=== PATIENT | female | born 1945 | race Caucasian/White ===

== ENCOUNTER 2025-07-14 13:11 | Outpatient (AMB) | payer MEDICARE, MEDICAID, SELFPAY ==
--- NOTE | 2025-07-14 13:22 | A.OFFVIS_ITS ---
Vital Signs 07/14/25 13:24 Height 5 ft 3 in Weight 190 lb 11.198 oz BMI 33.8 BP 112/72 Blood Pressure Location Rt brachial Position Sitting Pulse 58 Pulse Source Pulse Oximeter Pulse Oximetry (%) 97 Oxygen Delivery Method Room Air Intake Visit Reasons: Hypoglycemia Intake Note: NEW Patient presents here today to establish treatment for Hypoglycemia. Surgical Product Sales Consultant Required: Yes Surgical Product Sales Consultant Language: [place]raini Surgical Product Sales Consultant Services: Surgical Product Sales Consultant Present Surgical Product Sales Consultant Name: Jovani Galeana [id number] Information Interpreted: non-clinical & clinical Accompanied by: Son Allergies No Known Allergies Allergy (Verified 07/14/25 13:25) HPI Comments Details: PMH: HTN, Obesity, MDD in remission, GERD, seen in the office for initial evaluation and managememnt of hypoglycemia. HPI Recurrent episodes of hypoglycemia. Happening for the last 5-6 years. Varies, sometimes she has not symptoms for 1 months, sometimes she has 2 episodes of hypoglycemia. In between meals or the evening. She reports that when that happens she sometimes not feel like eating, but sometimes she does feel like eating. She reports that her BG when she checks are usually 40-50s. She has not have any specific testing for hypoglycemia Feels unwell, shaking, feeling like she is going to faint. She has never lost consciousness. She not always eats when this happens, but the times she eats the symptoms do improve. She has no history of admission for hypoglycemia, nor she has been told to have hypoglycemia during a hospital admission. There are not known specific triggers for her hypoglycemia episodes Her BG fasting are usually around 100. She did not bring a glucose log Weight usually stable, has gained a few lbs in the last few months No personal or family history T1 or T2DM No medications in records that could be associated with hypoglycemia No history of GLP-1 medications for weight loss No recent changes in medication Dietary History: diet would be really comprising of diverse food, like for breakfast, she may eat some eggs or some porridge or cottage cheese. For lunch, would have a soup, then the main dish, like diverse things. No relation between high carb meal and hypoglycemia episode No ETOH No history of Diabetes mellitus, Chronic kidney disease, Liver disease, Adrenal disease, Bariatric or GI surgery, Malignancy, Autoimmune disease. History of abdominal hernia repair with clips. No bowel suregry involved per patient report. Physical exam: General: Well appearing. NAD. Not Cushingoid or Acromegalic Neck/Thyroid: Thyroid not palpable, no nodules. Eyes: No conjunctival injection, not lid lag or proptosis CV: RRR, no murmur. No edema. Resp:Lungs clear to auscultation bilaterally Abdomen: Soft, nontender. nondistended Extremities/Neuro: No weakness or tremor of outstretched hands [facility] Medical History (Updated 07/14/25 @ 14:42 by Jason Mcgee MD) Obesity (BMI 30.0-34.9) Major depression in complete remission Chronic dermatitis Age-related cognitive decline Acute sinusitis Impaired fasting glucose Hip pain Dyslipidemia Idiopathic osteoarthritis Gastroesophageal reflux disease Hypercholesteremia Benign hypertensive heart disease Surgical History History of abdominal hernia Hx of total knee replacement Family History Father No problems noted. Mother No problems noted. Social History Alcohol intake: current Alcohol intake frequency: does not drink Patient Tobacco Use Status: Never used Tobacco Physical Exam Vital Signs: Last Vital Signs Pulse 58 07/14/25 13:24 BP 112/72 07/14/25 13:24 Pulse Ox 97 07/14/25 13:24 Oxygen Delivery Method Room Air 07/14/25 13:24 BMI result Body Mass Index 33.8 Assessment & Plan Assessment & Plan (1) Hypoglycemia: Code(s): E16.2 - Hypoglycemia, unspecified Category: Medical Plan: Recurrent hypoglycemia, sporadic episodes over 5-6 years with documented glucose values 49-52 mg/dL. No diabetes, no hypoglycemic medications, no clear trigger identified. Whipple's triad appears met based on home glucose monitoring. She does not meet the Whipples criteria, strictly talking. Concerned for possible hyperinsulinism. Will obtain laboratory evaluation. Plan 1. Laboratory Evaluation Ordered fasting blood work to evaluate for excess insulin production. Patient to complete labs before follow-up visit. 2. Home Glucose Monitoring Patient to check blood glucose 3 times daily for 2 weeks and maintain written log. Bring log to next appointment. Prescribed test strips (Freestyle Lite). Patient has adequate lancet supply. 3. Dietary Modifications Advised to avoid foods with simple carbohydrates including cookies, bread, pasta, and candies. 4. Nutrition Referral Patient agreeable to seeing client support professional for more specific dietary guidance. 5. Follow-Up Return visit scheduled for August. Patient to bring glucose log and will review laboratory results at that time. Patient Instructions (Brief) Check glucose 3 times daily for next 2 weeks and keep written record Avoid simple carbs (cookies, bread, pasta, candy) Complete fasting blood work before next visit Treat low blood sugars with juice or honey as you have been doing Return in August with glucose log Plan 65 minutes spent reviewing previous records, labs, imaging, education and documenting in the chart Orders: Orders 2 C Peptide Today E16.2 - Hypoglycemia, unspecified Proinsulin Today E16.2 - Hypoglycemia, unspecified Hemoglobin A1c Today E16.2 - Hypoglycemia, unspecified Hypoglycemic Panel Today E16.2 - Hypoglycemia, unspecified Other Ref Test - Misc 1 Day E16.2 - Hypoglycemia, unspecified Glucose Fasting Today E16.2 - Hypoglycemia, unspecified Insulin Today E16.2 - Hypoglycemia, unspecified Cortisol Random Today E16.2 - Hypoglycemia, unspecified Other Ref Test - Misc Today E16.2 - Hypoglycemia, unspecified Referrals Nutrition/Dietitian Referral E16.2 - Hypoglycemia, unspecified Medications: New blood sugar diagnostic (FreeStyle Lite Strips) As directed 100 ea 2RF Coding Level of Care Code New Pt Level 5 (84481) Add On Problem Visit Only Diagnoses Hypoglycemia E16.2
[2025-07-14 13:24] VITALS: BP 112/72; PULSE 58; O2SAT 97; BMI 33.8
--- OUTSIDE RECORDS SUMMARY | 2025-07-14 17:13 | XMS_ITS | Clinical Summary ---
Author Organization [address] [facility] Address [address] [place] [address] Phone Care Team Providers Care Nightman Name Role Phone Yulisa Oneill Primary Care Provider Allergies No known active allergies Medications amLODIPine (NORVASC) 5 mg tablet Take 1 tablet (5 mg total) by mouth. 04/28/2019 Active Eliquis 5 mg tablet Take 1 tablet (5 mg total) by mouth 2 (two) times a day. Active metoprolol tartrate (LOPRESSOR) 25 mg tablet Take 1 tablet (25 mg total) by mouth 2 (two) times a day. 09/23/2024 Active rosuvastatin (CRESTOR) 5 mg tablet Take 1 tablet (5 mg total) by mouth. 10/15/2024 Active Medical History Medical History Date Comments HTN (hypertension) DX:HTN (hyper tension) Social History Tobacco Use Types Packs/Day Years Used Date Smoking Tobacco: Never Assessed Comments Unknown Sex and Gender Information Value Date Recorded Sex Assigned at Not on file Legal Sex Female 11:07 AM EDT Gender Identity Not on file Sexual Orientation Not on file Last Filed Vital Signs Vital Sign Reading Time Taken Comments Blood Pressure 128/90 11/04/2024 8:24 AM EDT Pulse 74 11/04/2024 8:24 AM EDT Temperature - - Respiratory Rate - - Oxygen Saturation - - Inhaled Oxygen Concentration - - Weight 82.6 kg (182 lb) 11/04/2024 8:24 AM EDT Height 160 cm (5' 3 ) 03/12/2024 4:10 PM EDT Body Mass Index 32.24 03/12/2024 4:10 PM EDT Plan of Treatment Health Maintenance Due Date Last Done Comments DTaP,Tdap,and Td Vaccines (1 - Tdap) 1965 Pneumococcal Vaccine: 50+ Ye ars (1 of 1 - PCV) 1996 Zoster Vaccines (1 of 2) 1996 RSV Immunization Adult Patie nts (1 - 1-dose 75+ series) 2021 Cholesterol Screening (Lipid Panel) 02/22/2024 Falls Risk Assessment 02/22/2024 Hepatitis C Screening 02/22/2024 Medicare Annual Wellness Visit 02/22/2024 Osteoporosis Screening (Bone Density Screening) 02/22/2024 Social Influencers of Health Screening 02/22/2024 Hypertension/CHF/CAD Annual BMP Blood Test 05/09/2024 Depression Screening 07/30/2024 COVID-19 Vaccine (2 - 2024-2 6 season) 2025 08/24/2021 Influenza Vaccine (#1) 2025 HIB Vaccines Aged Out No longer eligi ble based on patient's age to complete this topic HPV Vaccines Aged Out No longer eligi ble based on patient's age to complete this topic Hepatitis A Vaccines Aged Out No long er eligible based on patient's age to complete this topic Hepatitis B Vaccines Aged Out No long er eligible based on patient's age to complete this topic IPV Vaccines Aged Out No longer eligi ble based on patient's age to complete this topic MMR Vaccines Aged Out No longer eligi ble based on patient's age to complete this topic Meningococcal ACWY Vaccine Aged Out N o longer eligible based on patient's age to complete this topic Meningococcal B Vaccine Aged Out No l onger eligible based on patient's age to complete this topic RSV Immunization Patients Un prasanna 20 months Aged Out No longer eligible b ased on patient's age to complete this topic Varicella Vaccines Aged Out No longer eligible based on patient's age to complete this topic Insurance MEDICAID - [place] MEDICARE Care Teams Nightman Relationship Specialty Start Date End Date Yulisa Oneill PA [address] [place] [address] [address] [place] [address] PCP - General 09/14/23
== END 2025-07-14 14:17 | disposition home or self-care (01) ==
LOC: HO.ENCR 13:11
PROVIDERS: PCP Physician Assistant Medical; Visit Provider Student in an Organized Health Care Education/Training Program
DX: E16.2 Hypoglycemia, unspecified (principal)
CPT/HCPCS: 99205; G2211

== ENCOUNTER → 2025-07-14 13:11 | Outpatient (BNVA) | payer MEDICARE, MEDICAID, SELFPAY | PROVIDERS: PCP Physician Assistant Medical; Visit Provider Student in an Organized Health Care Education/Training Program | DX: E16.2 Hypoglycemia, unspecified (principal) | CPT/HCPCS: 99202 ==